=== PATIENT | female | born 1955 ===

== ENCOUNTER 2025-07-14 06:32 | Day surgery (SDC) | payer MEDICARE, BC, SELFPAY ==
[2025-07-14] VITALS (7 sets, daily range): BP systolic 97–140; BP diastolic 55–71; BMI 24.6
[2025-07-14] MEDS: NORMOSOL-R/PLASMALYTE-A 1000 IV (10:48)
== END 2025-07-14 15:05 | disposition home or self-care (01) ==
LOC: SDS 06:32
PROVIDERS: ATTENDING PHYSICIAN Otolaryngology Facial Plastic Surgery
DX: S02.2XXA Fracture of nasal bones, initial encounter for closed fracture (principal); X58.XXXA Exposure to other specified factors, initial encounter; J34.3 Hypertrophy of nasal turbinates; J32.0 Chronic maxillary sinusitis; Z91.81 History of falling
CPT/HCPCS: 31267; 88304; 88311